=== PATIENT | male | born 1995 ===

== ENCOUNTER 2016-10-14 21:53 | Emergency (ER) | payer BC, OTHER ==
[2016-10-14 22:00] VITALS: BP 122/72; PULSE 55; RESP 20; TEMP 97.9; O2SAT 99
[2016-10-14] MEDS ORDERED: Amoxicillin-Clav 875-125 mg Tab PO STA (22:46)
[2016-10-14] MEDS ORDERED: Oxycodone/Acetaminophen 5/325 mg Tab PO STA (22:46)
[2016-10-14] MEDS ORDERED: Lidocaine 2% Inj (20ml) INFIL ONE (22:46)
--- NOTE | 2016-10-14 22:47 | C.PDOC ---
History Of Present Illness 20 yo male w/o significant PMHx come in for evaluation of Right forearm/hand dog bite sustained [employer]. Pt reports, family dog, immunization is UTD including rabies vaccination. Pt sts, " dog is teething and was playing with toe that he dropped and I picked it up and he grabbed me". Noted multiple small puncture wound to Right forearm and laceration #2 to Right hand, mild bloody oozing noted. Otherwise, pt denies fever, chills, weakness, deformity, sensory or vascular deficits to Right hand. Denies any other injury. Ambulate to Ed for evaluation, not in any apparent distress. Time Seen by Provider: 10/14/16 21:57 Chief Complaint (Nursing): Bite History Per: Patient Onset/Duration Of Symptoms: Sudden Onset Current Symptoms Are (Timing): Still Present Past Medical History Reviewed: Historical Data, Nursing Documentation, Vital Signs Vital Signs: Last Vital Signs Temp 97.9 F 10/14/16 21:57 Pulse 55 L 10/14/16 21:57 Resp 20 10/14/16 23:50 BP 122/72 10/14/16 21:57 Pulse Ox 99 10/14/16 23:43 - Medical History PMH: No Chronic Diseases Family History: States: Unknown Family Hx - Social History Hx Alcohol Use: Yes Hx Substance Use: No - Immunization History Hx Tetanus Toxoid Vaccination: No Hx Influenza Vaccination: Yes Hx Pneumococcal Vaccination: No Review Of Systems Except As Marked, All Systems Reviewed And Found Negative. Constitutional: Negative for: Fever, Chills Eyes: Negative for: Vision Change ENT: Negative for: Throat Pain, Throat Swelling Respiratory: Negative for: Cough, Shortness of Breath Gastrointestinal: Negative for: Nausea, Vomiting, Abdominal Pain Genitourinary: Negative for: Incontinence Musculoskeletal: Positive for: Hand Pain. Negative for: Neck Pain, Back Pain Skin: Positive for: Lesions Neurological: Negative for: Weakness, Numbness Physical Exam - Physical Exam Appears: Well, Non-toxic, No Acute Distress Skin: Normal Color, Warm, Other (SMALL PUNCTURE WOUND NOTED TO RIGHT FOREARM. LACERATION TO RIGHT PALM 3CM AND 2CM CUTANEOUS WITH MILD BLOODY OOZING. NO WOUND FB.) Eye(s): bilateral: PERRL Extremity: Normal ROM (right hand), Tenderness (Right hand diffuse tenderness with multiple small puncture wounds, mild diffuse hand edema. FAROM, no tendon or ligament injury, no neurovascular deficits. no erythema.), Capillary Refill ( less than 2sec to Right hand), No Deformity Neurological/Psych: Oriented x3, Normal Speech, Normal Motor, Normal Sensation, Normal Reflexes ED Course And Treatment O2 Sat by Pulse Oximetry: 99 Pulse Ox Interpretation: Normal Progress Note: On re-evaluation, pt is afebrile, hemodynamicaly stable. non- toxic. Right hand wounds throughly irrigated, laceration lossely closed with sutures. WOund cover with topical abx, non-stick sterile dressing applied, sling applied. No neurovascular deficist distally to injury of Right hand. Tetanus, abx given. Pt advised on wound care. ref. to f/u with PMD In 2 days for re-eval/wound check. return to ED at any time if any worsening or new changes. Pt understand, stable for discharge now. Laceration - Laceration Repair Right hand/palm Wound Length (In cm): 5cm Description Of Wound: Linear Wound Cleansed With: Sterile Saline Anesthesia: Lidocaine 2% Wound Examination: Irrigated With Saline, No FB With Wound Exploration, No Tendon Injury With Wound Exploration Wound Closure: Suture (#4) Suture Technique And Material Used: Interrupted, Nylon (#5 loose suture applied) Wound Complexity: Simple Disposition Counseled Patient/Family Regarding: Diagnosis, Need For Followup, Rx Given - Disposition Referrals: Boo Mcallister [Staff Provider] - Disposition: HOME/ ROUTINE Disposition Time: 23:35 Condition: STABLE Additional Instructions: KEEP HAND ELEVATED ICE CLEAN WITH COLD WATER, PEROXIDE, ANTIBIOTIC CREAM TOPICALLY TAKE MEDICATION PRESCRIBED FOLLOW UP WITH PMD IN 2 DAYS FOR WOUND CHECK. SUTURE REMOVAL IN 7-10 DAYS RETURN TO ED AT ANY TIME IF ANY SIGN OF INFECTION, WORSENING OR NEW CHANGES. Prescriptions: Amoxicillin/Clavulanate [Augmentin 875 MG-125 MG] 1 tab PO BID #14 tab Bacitracin OINT 1 applic TP BID #1 tube oxyCODONE/Acetaminophen [Percocet 5/325 mg Tab] 1 tab PO BID PRN #8 tab PRN Reason: Pain Instructions: Animal Bite (ED) - Clinical Impression Clinical Impression: Animal bite wound
[2016-10-14] MEDS ORDERED: Amoxicillin-Clav 875-125 mg Tab PO ONE (22:54)
[2016-10-14] MEDS ORDERED: Bacitracin 500 Units/gm Oint Foilpak UD ONE (22:55)
[2016-10-14] MEDS ORDERED: Oxycodone/Acetaminophen 5/325 mg Tab ONE (22:55)
[2016-10-14] MEDS ORDERED: Lidocaine 2% Inj (20ml) ONE (22:55)
== END 2016-10-14 23:50 | disposition home or self-care (01) ==
LOC: C.ER 21:53
DX: S51.831A Puncture wound without foreign body of right forearm, initial encounter (principal); S61.411A Laceration without foreign body of right hand, initial encounter; W54.0XXA Bitten by dog, initial encounter; Y93.89 Activity, other specified; Y92.009 Unspecified place in unspecified non-institutional (private) residence as the place of occurrence of the external cause